=== PATIENT | female | born 1935 | race Caucasian/White ===

== ENCOUNTER 2022-03-09 10:24 | Outpatient (CLI) | payer MEDICARE, BC, SELFPAY ==
--- NOTE | 2022-03-09 12:15 | W.ANESCHARGE ---
Anesthesia Charges Start Date/Time Anesthesia Start Date: 03/09/22 Anesthesia Start Time: 11:43 Stop Date/Time Anesthesia Stop Date: 03/09/22 Anesthesia Stop Time: 12:12 Summary Emergency: No Extremes of Age: Over 70-CPT [id number]
== END 2022-03-09 10:25 | disposition home or self-care (01) ==
LOC: OP CLINIC 10:26
PROVIDERS: PCP Family Medicine; Visit Provider Internal Medicine Gastroenterology
DX: Z85.038 Personal history of other malignant neoplasm of large intestine (principal); K57.30 Diverticulosis of large intestine without perforation or abscess without bleeding; Z98.0 Intestinal bypass and anastomosis status
CPT/HCPCS: 45378; 811; 813; 99100; J2704; J3490

== ENCOUNTER 2025-02-19 09:46 | Outpatient (CLI) | payer MEDICARE, BC, SELFPAY ==
--- NOTE | 2025-02-19 10:15 | CRLHL7_ITS ---
For Patients: As a result of the Century Cures Act, medical imaging exams and procedure reports are released immediately into your electronic medical record. You may view this report before your referring provider. If you have questions, please contact your health care provider. INDICATION: Primary malignant neoplasm of colon COMPARISON: None. TECHNIQUE: 2D alves-scale and color Doppler images were acquired of the pelvis using a transabdominal and transvaginal approach. Transvaginal imaging performed to better visualize the ovaries. FINDINGS: The uterus is surgically absent. The ovaries are not visualized due to excess bowel present in the adnexa. There are no suspicious fluid collections within the cul-de-sac. IMPRESSION: Nonvisualization of the ovaries due to excess bowel present within the adnexa. Dictated by Huy Lowry MD @ 02/19/2025 11:08:10 AM (Electronically Signed)
== END 2025-02-19 09:47 | disposition home or self-care (01) ==
LOC: US 09:50
PROVIDERS: PCP Family Medicine; Visit Provider Obstetrics & Gynecology Gynecologic Oncology
DX: C18.9 Malignant neoplasm of colon, unspecified (principal)
CPT/HCPCS: 76830; 76856